=== PATIENT | female | born 1965 | race Caucasian/White ===

== ENCOUNTER 2018-05-08 18:22 | Emergency (ER) | payer OTHER ==
[2018-05-08] MEDS: HYDROCODONE/APAP (10/325) TAB PO (19:10)
[2018-05-08] MEDS: IBUPROFEN 600 MG TAB PO (19:10)
== END 2018-05-08 21:03 | disposition home or self-care (01) ==
LOC: FTE 18:22
DX: S82.54XA Nondisplaced fracture of medial malleolus of right tibia, initial encounter for closed fracture (principal); S80.212A Abrasion, left knee, initial encounter; S69.91XA Unspecified injury of right wrist, hand and finger(s), initial encounter; I10 Essential (primary) hypertension; W01.0XXA Fall on same level from slipping, tripping and stumbling without subsequent striking against object, initial encounter; Y92.9 Unspecified place or not applicable; Z86.73 Personal history of transient ischemic attack (TIA), and cerebral infarction without residual deficits
CPT/HCPCS: 29505; 73110-RT; 73562; 73610-RT; 99284-25